=== PATIENT | female | born 1940 | race Caucasian/White ===

== ENCOUNTER 2023-05-20 10:57 | Outpatient (CLI) | payer OTHER, SELFPAY | END 2023-05-20 10:58 | disposition home or self-care (01) | LOC: RAD 11:00 | PROVIDERS: PCP Family Medicine; Visit Provider Family Medicine | DX: R06.00 Dyspnea, unspecified (principal); I07.1 Rheumatic tricuspid insufficiency; I34.0 Nonrheumatic mitral (valve) insufficiency; R60.0 Localized edema | CPT/HCPCS: 93306 ==

== ENCOUNTER 2023-12-29 07:30 | Inpatient (IN) | payer OTHER, SELFPAY ==
[2023-12-29] VITALS (22 sets, daily range): BP systolic 88–126; BP diastolic 41–78; PULSE 62–114; RESP 16–20; TEMP 36.3–36.6; O2SAT 92–100; BMI 19.3; BMI 20.3
--- NOTE | 2023-12-29 07:48 | ED_ITS ---
HPI - General Adult General Time Seen by Provider: 07:49 Date Seen: 12/29/23 Chief complaint: Hypotension Stated complaint: chest pain/ very high or very low BP Time Seen by Provider: 12/29/23 07:48 Source: patient, RN notes reviewed and old records reviewed Mode of arrival: ambulatory Limitations: no limitations History of Present Illness HPI narrative: 83-year-old female who presents today with lightheadedness. For the last week patient is noted lightheadedness when she is standing up. She has been dealing with some upper respiratory symptoms for the last several weeks, has been on 2 rounds of antibiotics and currently on prednisone. She has noted occasional fast heart rate but relates this to using DuoNebs which she has not previously had, says she tolerates albuterol without difficulty. No recent lower extremity swelling, nausea, vomiting, diarrhea. Denies chest pain today but says she had heartburn type pain yesterday which radiated up into her neck. Related Data Home Medications Medication Instructions Recorded Confirmed dicyclomine 10 mg capsule 10 mg PO PRN 11/01/22 12/18/23 lactobacillus combination no.9 4 4,000 mmu cells PO QDAY 11/01/22 12/18/23 billion cell capsule (Adult 50 Plus Probiotic) magnesium 250 mg tablet 500 mg PO QDAY 11/01/22 12/18/23 aspirin 325 mg tablet 650 mg PO .3-4 x daily 12/10/22 12/18/23 betamethasone dipropionate 0.05 % applic topical PRN 12/10/22 12/18/23 topical cream calcium carb-ergocalciferol (vit tab PO DAILY 12/10/22 12/18/23 D2) 500 mg-125 unit tablet vitamin B12 2,500 mcg-folic acid 1 tab PO DAILY 12/10/22 12/18/23 400 mcg disintegrating tablet aluminum hydrox-magnesium carb 160 2 tab PO TID PRN 01/30/23 12/18/23 mg-105 mg chewable tablet (Gaviscon Extra Strength) calcium carbonate (Tums) 200 mg PO TID PRN 01/30/23 12/18/23 fluticasone fur. 100 mcg-umeclid 1 inh inhalation Q24H 05/15/23 12/18/23 62.5 mcg-vilant 25 mcg inhalat.powder (Trelegy Ellipta) Previous Rx's Medication Instructions Recorded albuterol sulfate 90 mcg/actuation 2 puff inhalation Q6-8H #8.5 grams 03/03/23 aerosol inhaler (Ventolin HFA) prednisone 20 mg tablet 20 mg PO BID 5 days #10 tabs 03/03/23 losartan 100 mg tablet 100 mg PO .hs #90 tabs 07/04/23 atenolol 50 mg tablet 50 mg PO BID #180 tabs 07/10/23 pantoprazole 40 mg tablet,delayed 40 mg PO DAILY #90 tabs 10/20/23 release hydrochlorothiazide 25 mg tablet 25 mg PO QAM #90 tabs 11/20/23 nebulizers (Compact Compressor #1 ea 12/18/23 Nebulizer) prednisone 10 mg tablet 10 mg PO DIRECTED #28 tabs 12/18/23 furosemide 20 mg tablet 20 mg PO Q1D PRN for edema #30 tabs 12/19/23 albuterol sulfate 2.5 mg/3 mL 2.5 mg (3 mL) inhalation Q4-6H PRN 12/25/23 (0.083 %) solution for nebulization shortness of breath or wheezing #75 mL Allergies Allergy/AdvReac Type Severity Reaction Status Date / Time No Known Drug Allergies Allergy Verified 12/18/23 09:49 [facility] Medical History (Updated 12/29/23 @ 09:43 by Steve Church MD) COPD exacerbation ?J44.1 - Chronic obstructive pulmonary disease with (acute) exacerbation (ICD-10) Diverticulosis of intestine (06/08/12) ?K57.90 - Diverticulosis of intestine, part unspecified, without perforation or abscess without bleeding (ICD-10) Cyst of pancreas ?K86.2 - Cyst of pancreas (ICD-10) Colonoscopy refused ?Z53.20 - Procedure and treatment not carried out because of patient's decision for unspecified reasons (ICD-10) Surgical History (Updated 10/31/22 @ 09:42 by Ilsa Ballard ~ PSR) History of total hysterectomy with bilateral salpingo-oophorectomy (BSO) (04/13/10) ?Z90.710 - Acquired absence of both cervix and uterus (ICD-10) ?Z90.722 - Acquired absence of ovaries, bilateral (ICD-10) ?Z90.79 - Acquired absence of other genital organ(s) (ICD-10) History of colonoscopy with polypectomy ?Z98.890 - Other specified postprocedural states (ICD-10) ?Z86.010 - Personal history of colonic polyps (ICD-10) History of appendectomy (04/13/10) ?Z90.49 - Acquired absence of other specified parts of digestive tract (ICD- 10) Family History (Updated 10/31/22 @ 09:51 by Ilsa Ballard ~ PSR) Mother Coronary artery disease Stroke Brother Coronary artery disease Father Diabetes Social History (Updated 10/31/22 @ 09:51 by Ilsa Ballard ~ PSR) Narrative: Former smoker Does not use illicit drugs Occasional alcohol consumption Smoking Status: Former smoker Do you use any of these nicotine containing products: None Second hand tobacco smoke exposure: No How often do you have a drink containing alcohol: never How often do you have six or more drinks on one occasion: Never AUDIT-C Alcohol total score: 0 Non-prescribed substance use: denies use service: No Exam Narrative: Exam Narrative: General: Well-developed and well-nourished, no acute distress Head: Atraumatic and normocephalic Eyes: Pupils are equal reactive, extraocular motions intact, conjunctiva clear ENT: External nose and ears are normal, posterior pharynx without erythema or exudate Neck: No midline cervical tenderness, full spontaneous range of motion the neck, trachea midline, no adenopathy Heart: Irregular rate, regular rhythm Lungs: Clear to auscultation bilaterally with trace expiratory wheezes bilaterally Abdomen: Soft, nontender, nondistended with active bowel sounds Musculoskeletal: No tenderness, deformity, or edema Neurologic: Awake, alert, and oriented x3, no gross focal neurologic deficits, cranial nerves intact as tested Psych: Mood and affect are appropriate Skin: No rashes Const: Vital Signs, click to edit/add: Vital Signs - 24 hr 12/29/23 07:52 12/29/23 08:50 Temperature 98 F Pulse Rate [Right Pulse Oximeter] 88 Respiratory Rate 16 Blood Pressure [Ri ght Upper Arm] 116/78 97/52 L Pulse Oximetry 100 Oxygen Delivery Me thod Room Air Course Course ED Course: Patient seen examined. Reviewed most recent primary care visit from 12/18/2023 when patient was seen for COPD exacerbation which at that time had been going on for couple of weeks, some achiness in the axilla but denied chest pain. At that time chest x-ray was done and patient started on doxycycline, continue nebulizer treatments and prednisone taper. Patient presents today with lightheadedness intermittently for about a week worse when she stands up. On exam here, she is noted to be in atrial fibrillation with controlled rate, no prior history of atrial fibrillation. She distally reports an episode of heartburn type pain with radiation in the neck yesterday. This could be from gastroesophageal reflux but also concern for possible angina. Labs are ordered along with fluids and magnesium and will monitor closely, anticipate admission. Reevaluation(s) Time of Reevaluation #1: 08:52 Reevaluation #1: Labs ordered and independently interpreted by the with normal CBC, mild hyponatremia and mild hypo magnesemia, also elevated creatinine [place] [address], magnesium normal. Chest x-ray is ordered. Troponin is 0.07 which may reflect strain, could also be related to poor clearance secondary to elevated creatinine. Time of Reevaluation #2: 09:19 Reevaluation #2: Care discussed with Dr. Prescott, hospitalist for admission. Repeat troponin will be done if this is stable, patient can stay at [facility] Time of Reevaluation #3: 09:39 Reevaluation #3: Chest x-ray independently interpreted by me with fluid in the fissure on the left, possible tiny pleural effusion, no overt findings of infiltrate or cardiomegaly. Patient presents today with cough, episodic lightheadedness. New atrial fibrillation on exam, Labs with elevated creatinine unclear baseline, also elevated BNP which may be related to elevated creatinine and poor clearance, also significantly elevated D-dimer but unfortunately due to kidney injury cannot perform CT PE study. Patient has no pleuritic-type chest pain and oxygen saturations are in the 90s. Given new atrial fibrillation, it would be reasonable to start anticoagulation with either DOAC or heparin/Lovenox pending further evaluation for pulmonary embolism. Plan for admission for echocardiogram, medication adjustments, gentle fluid hydration and further evaluation. Additional Reevaluation(s): 9:57 a.m. repeat troponin unchanged at 0.07. Vital Signs Vital signs: Initial Vital Signs Temperature 98 F 12/29/23 07:52 Temperature Source Temporal Artery Scan 12/29/23 07:52 Pulse Rate 88 12/29/23 07:52 Pulse Rhythm Regular 12/29/23 07:52 Pulse Strength 3+ Normal 12/29/23 07:52 Respiratory Rate 16 12/29/23 07:52 Blood Pressure 116/78 12/29/23 07:52 Blood Pressure Mean 90 12/29/23 07:52 Blood Pressure Position Supine 12/29/23 07:52 Pulse Oximetry 100 12/29/23 07:52 Oxygen Delivery Method Room Air 12/29/23 07:52 Vital Signs Temperature 98 F 12/29/23 07:52 Pulse Rate 88 12/29/23 07:52 Respiratory Rate 16 12/29/23 07:52 Blood Pressure 116/78 12/29/23 07:52 Pulse Oximetry 100 12/29/23 07:52 Oxygen Delivery Method Room Air 12/29/23 07:52 Temperature 98 F 12/29/23 07:52 Pulse Rate 88 12/29/23 07:52 Respiratory Rate 16 12/29/23 07:52 Blood Pressure 97/52 L 12/29/23 08:50 Pulse Oximetry 100 12/29/23 07:52 Oxygen Delivery Method Room Air 12/29/23 07:52 Medications Administered Medications: Generic Name Dose Route Start Last Admin Trade Name Freq PRN Reason Stop Dose Admin Magnesium Sulfate 2 gm in 50 mls @ 25 mls/hr 12/29/23 08:30 12/29/23 09:56 Magnesium Iv IVPB 12/29/23 10:29 Infused ONCE ONE Infusion Potassium Chloride 10 meq in 100 mls @ 100 mls/hr 12/29/23 09:18 12/29/23 09:55 Potassium Chloride IVPB 12/29/23 10:17 100 mls/hr ONCE ONE Administration Discontinued Medications Generic Name Dose Route Start Last Admin Trade Name Freq PRN Reason Stop Dose Admin Sodium Chloride 500 mls @ 500 mls/hr 12/29/23 08:03 12/29/23 08:25 0.9 % Sodium Chloride 500 Ml IV 12/29/23 09:02 500 mls/hr .Q1H ONE Administration Potassium Bicarbonate 25 meq 12/29/23 09:18 12/29/23 09:56 Potassium Bicarb 25 Meq Effervescent Tab PO 12/29/23 09:19 Not Given ONCE ONE Medical Decision Making Lab Data Labs: Lab Results 12/29/23 12/29/23 12/29/23 Range/Units 08:03 08:07 09:30 WBC 6.20 (4.50-11.00) K/uL RBC 3.94 L (4.00-5.20) m/uL Hgb 12.3 (12.0-16.0) gm/dL Hct 36.4 (33.0-51.0) % MCV 92 (80-100) fL MCH 31 (26-34) pg MCHC 34 (32-36) gm/dL RDW Coeff of Brian 13.5 (11.5-15.5) % Plt Count 138 L (140-440) K/uL Neut % (Auto) 64.8 (42.0-72.0) % Lymph % (Auto) 17.4 L (20-44) % Luna % (Auto) 16.8 H (0.0-11.0) % Eos % (Auto) 0.3 (0.0-7.0) % Baso % (Auto) 0.2 (0.0-3.0) % Neut # (Auto) 4.02 (1.7-7.0) K/uL Lymph # (Auto) 1.10 (0.90-2.90) K/uL Luna # (Auto) 1.00 H (0.00-0.90) K/UL Eos # (Auto) 0.02 (0.00-0.50) K/uL Baso # (Auto) 0.01 (0.00-0.30) K/uL Abs Immat Gran (auto) 0.03 (0.00-0.30) K/uL Imm/Tot Granulo (auto) 0.5 % D-Dimer Quant (PE/DVT) 19.29 H (0.00-0.50) ug/ml Sodium 127 L (135-149) mmol/L Potassium 3.2 L (3.6-5.1) mmol/L Chloride 93 L (96-114) mmol/L Carbon Dioxide 25 (20-32) mmol/L Anion Gap 9 (7-15) mEq/L BUN 63 H (7-30) mg/dL Creatinine 3.0 H (0.5-1.5) mg/dL Estimated Creat Clear 10.70 Estimated GFR 15 ml/min Glucose 103 (60-115) mg/dL Calcium 9.6 (8.4-10.6) mg/dL Magnesium 2.5 (1.5-2.6) mg/dL NT-Pro-B Natriuret Pep 57311 pg/mL POC Troponin I 0.07 H 0.07 H (0.01-0.04) ng/ml ECG Data Attestation: I personally reviewed and interpreted this ECG as follows: Prior ECG tracings: not available for review Interpretation: Independently interpreted by me performed at 7:50 a.m. demonstrates atrial fibrillation rate 64, no acute ST elevations or depressions, normal axis, QTC 377, no prior for comparison. Discharge Plan Discharge Clinical Impression: Lightheadedness, Hyponatremia, Renal failure, unspecified, Atrial fibrillation, new onset, Hypotension, Hypokalemia Patient Disposition: Admitted As Observation Condition: Stable
[2023-12-29 08:17] LABS: Basophils Absolute Auto 0.01 K/uL (0.00-0.30); Basophils Percent Auto 0.2 % (0.0-3.0); Eosinophils Absolute Auto 0.02 K/uL (0.00-0.50); Eosinophils Percent Auto 0.3 % (0.0-7.0); Hematocrit 36.4 % (33.0-51.0); Hemoglobin* 12.3 gm/dL (12.0-16.0); Immature Granulocytes Abs Auto 0.03 K/uL (0.00-0.30); Immature Granulocytes Pct Auto 0.5 %; Lymphocytes Percent Auto 17.4 % (20-44); Mean Corpuscular HGB Conc 34 gm/dL (32-36); Mean Corpuscular Hemoglobin 31 pg (26-34); Mean Corpuscular Volume 92 fL (80-100); Monocytes Percent Auto 16.8 % (0.0-11.0); Neutrophils Absolute Auto 4.02 K/uL (1.7-7.0); Neutrophils Percent Auto 64.8 % (42.0-72.0); Platelet Count* 138 K/uL (140-440); RDW Coefficient of Variation % 13.5 % (11.5-15.5); Red Blood Count 3.94 m/uL (4.00-5.20)
[2023-12-29 08:21] LABS: Slide Review Reflex No
[2023-12-29] MEDS: MAGNESIUM IV 2 GM/50 ML PIGGYBACK IVPB (08:25)
[2023-12-29] MEDS: 0.9 % SODIUM CHLORIDE 500 ML 500 ML IV (08:25)
[2023-12-29 08:32] LABS: Chloride* 93 mmol/L (96-114); Potassium* 3.2 mmol/L (3.6-5.1); Sodium* 127 mmol/L (135-149)
[2023-12-29 08:35] LABS: Anion Gap 9 mEq/L (7-15); Blood Urea Nitrogen* 63 mg/dL (7-30); Carbon Dioxide* 25 mmol/L (20-32); Estimated Glomerular Filt Rate 15 ml/min
[2023-12-29 08:36] LABS: Calcium* 9.6 mg/dL (8.4-10.6); Glucose* 103 mg/dL (60-115); Magnesium* 2.5 mg/dL (1.5-2.6)
[2023-12-29 08:44] LABS: NT Pro B Type NatriureticPept* 27100 pg/mL
[2023-12-29 08:46] LABS: D Dimer Quantitative* 19.29 ug/ml (0.00-0.50)
[2023-12-29 08:54] LABS: Troponin, Point-of-Care* 0.07 ng/ml (0.01-0.04)
--- NOTE | 2023-12-29 09:07 | XR_ITS ---
Patient: CELY GIFFORD Facility:?[facility] Patient ID:?[id number] Site Patient ID:?[id number]. Site :?[id number] Study:?XRay-Chest 2 VIEW-12/29/2023 9:31:37 AM Ordering Physician:?DR. LOVE Final Report: INDICATION: Cough with elevated BNP COMPARISON: December 18, 2023 TECHNIQUE: Two views of the chest were acquired FINDINGS: TUBES AND LINES: None. HEART AND MEDIASTINUM: The heart size is normal. The mediastinal contour appears normal for patient age. LUNGS AND PLEURAL SPACES: Hyperinflation likely indicating COPD. Subtle finding of partial collapse of the right middle lobe seen on the lateral view. This was present on the prior chest x-ray. Pleural spaces are normal OSSEOUS STRUCTURES: Age-appropriate appearance. No acute focal finding. IMPRESSION: Hyperinflation likely indicating COPD. Subtle findings of partial collapse of the right middle lobe. This was present 12/18/2023. Otherwise unremarkable exam Dictated by Tc Land MD @ 12/29/2023 9:47:16 AM Signed by:?Tc Land MD @12/29/2023 9:47:16 AM (Electronic Signature)
[2023-12-29 09:50] LABS: Troponin, Point-of-Care* 0.07 ng/ml (0.01-0.04)
[2023-12-29] MEDS: POTASSIUM CHLORIDE 10 MEQ/100 ML PIGGYBACK 100 MEQ IVPB (09:55)
[2023-12-29] MEDS: POTASSIUM BICARB 25 MEQ EFFERVESCENT TAB PO (10:11)
--- NOTE | 2023-12-29 11:27 | PM.IMHP1 ---
Hospitalist- H&P: HPI History of Present Illness Date Seen: 12/29/23 Chief complaint: chest pain/ very high or very low BP Narrative: Tiffanie Rankin is a 83 year old female who presented to the emergency room this morning for postural dizziness. She has been ill for the past 2-3 weeks with an asthma/COPD exacerbation. She has been treated with antibiotics and steroids with minimal relief. DuoNebs were also added to her regimen, but noted significant palpitations after this nebulizer treatment. Over the past few days, she has noted lightheadedness after standing, no syncope. Yesterday, she had an episode of epigastric pain that radiated into her jaw; she was unsure if this was related to gastritis or angina as she had recently eaten some Honey baked ham. This morning, her symptoms of lightheadedness were worse, so she called her son to bring her to the emergency room. ER course and findings: - rate controlled atrial fibrillation on EKG, new finding - creatinine of 3.0 (last creatinine in 2021 - per [facility] chart - was 1.0), Potassium of 3.2 and sodium of 127 - BNP 27K, D-dimer [address] Regalado at [facility] is PCP. Review of Systems Narrative: - believes she has lost about 7 lb during the course of recent illness - sleeping well, no orthopnea or PND - no LE edema, history of intermittent edema (takes Lasix prn - has not taken for some time) - mild bilateral ear congestion over the past week or so, has been using prn Claritin [facility] Medical History (Updated 12/29/23 @ 13:26 by Mya Prescott MD) Irritable bowel syndrome (04/13/10) ?K58.9 - Irritable bowel syndrome without diarrhea (ICD-10) Hypertension (04/13/10) ?I10 - Essential (primary) hypertension (ICD-10) Pedal edema ?R60.0 - Localized edema (ICD-10) BPPV (benign paroxysmal positional vertigo) ?H81.10 - Benign paroxysmal vertigo, unspecified ear (ICD-10) Chronic GERD ?K21.9 - Gastro-esophageal reflux disease without esophagitis (ICD-10) Carotid bruit ?R09.89 - Other specified symptoms and signs involving the circulatory and respiratory systems (ICD-10) Subclinical hypothyroidism ?E03.8 - Other specified hypothyroidism (ICD-10) Peripheral neuropathy ?G62.9 - Polyneuropathy, unspecified (ICD-10) Osteopenia (04/13/10) ?M85.80 - Other specified disorders of bone density and structure, unspecified site (ICD-10) Osteoarthritis of cervical spine (09/25/10) ?M47.812 - Spondylosis without myelopathy or radiculopathy, cervical region (ICD-10) Allergic rhinitis (03/03/14) ?J30.9 - Allergic rhinitis, unspecified (ICD-10) COPD (chronic obstructive pulmonary disease) ?J44.9 - Chronic obstructive pulmonary disease, unspecified (ICD-10) COPD exacerbation ?J44.1 - Chronic obstructive pulmonary disease with (acute) exacerbation (ICD-10) Diverticulosis of intestine (06/08/12) ?K57.90 - Diverticulosis of intestine, part unspecified, without perforation or abscess without bleeding (ICD-10) Cyst of pancreas ?K86.2 - Cyst of pancreas (ICD-10) Colonoscopy refused ?Z53.20 - Procedure and treatment not carried out because of patient's decision for unspecified reasons (ICD-10) Surgical History (Updated 10/31/22 @ 09:42 by Ilsa Ballard ~ PSR) History of total hysterectomy with bilateral salpingo-oophorectomy (BSO) (04/13/10) ?Z90.710 - Acquired absence of both cervix and uterus (ICD-10) ?Z90.722 - Acquired absence of ovaries, bilateral (ICD-10) ?Z90.79 - Acquired absence of other genital organ(s) (ICD-10) History of colonoscopy with polypectomy ?Z98.890 - Other specified postprocedural states (ICD-10) ?Z86.010 - Personal history of colonic polyps (ICD-10) History of appendectomy (04/13/10) ?Z90.49 - Acquired absence of other specified parts of digestive tract (ICD-10) Family History (Updated 10/31/22 @ 09:51 by Ilsa Ballard ~ PSR) Mother Coronary artery disease Stroke Brother Coronary artery disease Father Diabetes Social History (Updated 12/29/23 @ 12:53 by Mya Prescott MD) Narrative: Tiffanie lives alone in [place]; she has one son who from cancer 18 months ago, son Rajiv (MDM if needed) lives in [place] and daughter Suzanne in [place]. She has a 50-60 pack year history of smoking, quit around 2019. Has a cocktail daily, no history of withdrawal but doesn't remember the last time she's gone a day without a small drink (typically vodka and 7-up). 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 What is your current living situation?: I presently have a place to live Problems where you live: no known problems Problems where you live details: none In the past 12 months, utilities in danger of being shut off: no In past 12 months, lack of transportation kept you from medical appts, meetings, work, or getting things needed for daily living: no In the past 12 mos, have been you worried that your food would run out before you had money to buy more?: never true In the past 12 mos, the food you bought just didn't last and you didn't have money to buy more?: never true Highest level of school completed/degree received: Associate degree: occupational, technical, vocational program Smoking Status: Former smoker Do you use any of these nicotine containing products: None Second hand tobacco smoke exposure: No How often do you have a drink containing alcohol: 2-3 times a week How many standard drinks containing alcohol do you have on a typical day: 1 or 2 How often do you have six or more drinks on one occasion: Never AUDIT-C Alcohol total score: 3 Non-prescribed substance use: denies use Caffeine: No How often does anyone, including family, friends and others, physically hurt you: never How often does anyone, including family, friends and others, insult or talk down to you: never How often does anyone, including family, friends and others, threaten you with harm: never How often does anyone, including family, friends and others, scream or curse at you: never service: No Meds Home Medications and Allergies Home Medications Medication Instructions Recorded Confirmed Type dicyclomine 10 mg capsule 10 mg PO QID PRN 11/01/22 12/29/23 History lactobacillus combination no.9 4 4,000 mmu cells PO QDAY 11/01/22 12/29/23 History billion cell capsule (Adult 50 Plus Probiotic) magnesium 250 mg tablet 500 mg PO QDAY 11/01/22 12/29/23 History aspirin 325 mg tablet 650 mg PO .3-4 x daily 12/10/22 12/29/23 History betamethasone dipropionate 0.05 % applic topical Q12H PRN 12/10/22 12/18/23 History topical cream calcium carb-ergocalciferol (vit 1 tab PO DAILY 12/10/22 12/29/23 History D2) 500 mg-125 unit tablet vitamin B12 2,500 mcg-folic acid 1 tab PO DAILY 12/10/22 12/29/23 History 400 mcg disintegrating tablet aluminum hydrox-magnesium carb 160 2 tab PO TID PRN 01/30/23 12/29/23 History mg-105 mg chewable tablet (Gaviscon Extra Strength) calcium carbonate (Tums) 200 mg PO TID PRN 01/30/23 12/29/23 History fluticasone fur. 100 mcg-umeclid 1 inh inhalation Q24H 05/15/23 12/29/23 History 62.5 mcg-vilant 25 mcg inhalat.powder (Trelegy Ellipta) losartan 100 mg tablet 100 mg PO QDAY 12/29/23 12/29/23 History Allergies Allergy/AdvReac Type Severity Reaction Status Date / Time No Known Drug Allergies Allergy Verified 12/18/23 09:49 Exam Narrative: Exam Narrative: GEN: Alert and oriented, nontoxic, appears younger than stated age HEENT: EOMIs bilaterally, no scleral icterus CV: Irregularly irregular rhythm, rate in the 70s, no concerning murmurs R: LCTA bilaterally without concerning wheezing, rales, or rhonchi Ext: wwp, no pretibial edema Skin: No concerning skin lesions or rashes on exposed skin Neuro: No focal deficits, no resting tremor Psych: Appropriate Const: Vital Signs, click to edit/add: Vital Signs - 24 hr 12/29/23 07:52 12/29/23 08:05 12/29/23 08:15 Temperature 98 F Pulse Rate 82 82 Pulse Rate [Right Pulse Oximeter] 88 Pulse Rate [Right Radial] Respiratory Rate 16 Blood Pressure Blood Pressure [Ri ght Arm] Blood Pressure [Ri ght Upper Arm] 116/78 Pulse Oximetry 100 98 94 Oxygen Delivery Me thod Room Air 12/29/23 08:38 12/29/23 08:39 12/29/23 08:40 Temperature Pulse Rate 78 70 Pulse Rate [Right Pulse Oximeter] Pulse Rate [Right Radial] Respiratory Rate Blood Pressure 89/45 L 92/57 L Blood Pressure [Ri ght Arm] Blood Pressure [Ri ght Upper Arm] Pulse Oximetry 94 Oxygen Delivery [facility] 12/29/23 08:45 12/29/23 08:50 12/29/23 09:00 Temperature Pulse Rate 79 82 Pulse Rate [Right Pulse Oximeter] Pulse Rate [Right Radial] Respiratory Rate Blood Pressure Blood Pressure [Ri ght Arm] Blood Pressure [Ri ght Upper Arm] 97/52 L Pulse Oximetry 98 96 Oxygen Delivery [facility] 12/29/23 09:02 12/29/23 09:16 12/29/23 09:35 Temperature Pulse Rate 79 Pulse Rate [Right Pulse Oximeter] Pulse Rate [Right Radial] Respiratory Rate Blood Pressure 88/41 L 94/57 L 126/60 Blood Pressure [Ri ght Arm] Blood Pressure [Ri ght Upper Arm] Pulse Oximetry 92 Oxygen Delivery [facility] 12/29/23 09:40 12/29/23 09:46 12/29/23 10:01 Temperature Pulse Rate Pulse Rate [Right Pulse Oximeter] Pulse Rate [Right Radial] Respiratory Rate Blood Pressure 113/68 107/76 Blood Pressure [Ri ght Arm] Blood Pressure [Ri ght Upper Arm] Pulse Oximetry 99 Oxygen Delivery [facility] 12/29/23 10:18 12/29/23 10:51 Temperature 97.4 F L Pulse Rate Pulse Rate [Right Pulse Oximeter] Pulse Rate [Right Radial] 80 Respiratory Rate 20 Blood Pressure 110/65 Blood Pressure [Ri ght Arm] 114/70 Blood Pressure [Ri ght Upper Arm] Pulse Oximetry Oxygen Delivery [facility] Hospitalist - H&P: Result Labs Labs: Short CBC 12/29/23 Range/Units 08:07 WBC 6.20 (4.50-11.00) K/uL Hgb 12.3 (12.0-16.0) gm/dL Hct 36.4 (33.0-51.0) % Plt Count 138 L (140-440) K/uL BMP 12/29/23 08:07 Sodium 127 L Potassium 3.2 L Chloride 93 L Carbon Dioxide 25 BUN 63 H Creatinine 3.0 H Glucose 103 Calcium 9.6 Assessment and Plan Assessment and plan (1) Atrial fibrillation, new onset: Problem comment: - unclear when arrythmia started - likely contributing to hypotension - HR 70s with occasional increase to 110s, will add low dose Diltiazem with holding parameters to assist with rate control - CHADs-VASC of 4, amenable to initiating Apixaban today after risk/benefit discussion - TTE ordered Status: Acute (2) Acute kidney injury: Problem comment: - presumably pre-renal from recent illness, decreased po intake, decreased perfusion 2/2 hypotension/atrial fibrillation - holding nephrotoxins, check UA, renal ultrasound Status: Acute (3) Elevated troponin: Problem comment: - likely demand ischemia from new a fib, also has BRANDY - telemetry, follow troponins, TTE Status: Acute (4) Hypokalemia: Problem comment: - replace and follow Status: Acute (5) Hypotension: Problem comment: - iatrogenic from home medications vs poor perfusion from new diagnosis of atrial fibrillation - holding home medications, follow closely, gentle IVFs if symptomatic (will monitor closely given concern of CHF) Status: Acute (6) Hyponatremia: Problem comment: - fluid restriction, urine Na and Osm Status: Acute (7) Hypertension: Problem comment: - on Atenolol, Losartan, and HCTZ as an outpatient - holding given BRANDY and hypotension, will transition to low dose Metoprolol given new diagnosis of atrial fibrillation Status: Acute (8) Asthma-chronic obstructive pulmonary disease overlap syndrome: Problem comment: - recent exacerbation - continue oral steroids (Prednisone at 20mg), nebs, RT referral Status: Acute (9) Elevated d-dimer: Problem comment: - ddx: thrombosis, BRANDY, acute illness - will obtain BLE ultrasounds, evaluate R heart function on TTE (deferring formal PE study at this time given BRANDY) - starting Eliquis at this time for a fib Status: Acute Plan - per above - Eliquis for ppx - son Rajiv updated at bedside, questions answered
--- NOTE | 2023-12-29 12:04 | US_ITS ---
Patient: CELY GIFFORD Facility:?[facility] Patient ID:?[id number] Site Patient ID:?[id number]. Site :?[id number] Study:?US-Extremity Venous BLEV-12/29/2023 12:58:58 PM Ordering Physician:KAREN PRESCOTT Final Report: INDICATION: Elevated D-dimer. COMPARISON: None. TECHNIQUE: Duplex ultrasound evaluation venous system both lower extremities; color doppler duplex assessment. Findings: Right leg: The right common femoral vein and deep femoral vein are unremarkable. Extensive occlusive thrombus identified involving the rest of the deep venous system including the entire femoral vein, popliteal vein and posterior tibial veins as well as the peroneal veins. Left leg: No evidence of deep venous thrombosis left lower extremity deep venous system. Deep venous system is compressible with augmentation of flow postconcussion. IMPRESSION: 1. Extensive DVT right lower extremity deep venous system sparing the common femoral vein and the deep femoral vein. 2. No DVT left lower extremity. 3. Findings were notified to Dr. Prescott at 1:10 p.m. Dictated by Salomon Maurice MD @ 12/29/2023 1:13:31 PM Signed by:?Salomon Maurice MD @12/29/2023 1:13:31 PM (Electronic Signature)
--- NOTE | 2023-12-29 12:20 | US_ITS ---
Patient: CELY GIFFORD Facility:?[facility] Patient ID:?[id number] Site Patient ID:?[id number]. Site :?[id number] Study:?US-Abdomen Bilateral RENAL-12/29/2023 12:59:22 PM Ordering Physician:KAREN SULLIVAN Final Report: INDICATION: Acute kidney injury. COMPARISON: None. TECHNIQUE: Ultrasound examination of the kidneys bilateral. FINDINGS: Right kidney measures 8.5 x 3.6 x 3.6 cm and the left kidney measured 9.7 x 3.6 x 2.7 cm. Normal echogenic pattern of the cortex bilaterally. Normal thickness of the renal cortex bilaterally measuring 1.2 cm on the right and 1 cm on the left. no obstructive uropathy or perinephric pathology. IMPRESSION: Normal ultrasound examination of the kidneys bilateral. Dictated by Salomon Maurice MD @ 12/29/2023 1:17:35 PM Signed by:?Salomon Maurice MD @12/29/2023 1:17:35 PM (Electronic Signature)
[2023-12-29 12:28] LABS: Appearance Urine Clear (Clear); Bilirubin Urine Negative (Negative); Blood Urine Negative (Negative); Color Urine Yellow (Yellow); Glucose Urine Negative (Negative); Ketones Urine Negative (Negative); Leukocyte Esterase Urine Trace (Negative); Nitrite Urine Negative (Negative); Protein Urine Negative (Negative); Specific Gravity Urine 1.015 (1.000-1.030); Urobilinogen Urine 0.2 (0.2-1.0)
[2023-12-29 12:46] LABS: Bacteria Urine Few; RBC Urine 0-2 (0-2); Squamous Epithelial Cell Urine Few (None-Few)
[2023-12-29] MEDS: APIXABAN 5 MG TABLET 2.5 MG PO (12:49)
[2023-12-29] MEDS: dilTIAZem 30 MG TABLET PO ×2 (12:49→18:05)
--- NOTE | 2023-12-29 14:36 | PC.NURSE ---
End of Shift Note: Patient was admitted mid morning from the ER after experiencing lightheadedness at home and low b/p. B/P has been on the soft side. Does have tele on which is afib. No complaints of CP or SOB for me. Does complain of her ears feeling full requesting Claritin message left for provider. Heart rate when she first arrived was in the low 100's received dilt along with sam see MAR. Tolerated reg diet. Will continue to monitor until next shift arrives.
[2023-12-29 14:52] LABS: Chloride* 96 mmol/L (96-114); Potassium* 3.9 mmol/L (3.6-5.1); Sodium* 128 mmol/L (135-149)
[2023-12-29 14:55] LABS: Anion Gap 9 mEq/L (7-15); Carbon Dioxide* 23 mmol/L (20-32); Creatinine* 2.9 mg/dL (0.5-1.5); Est. Creatinine Clearance* 11.66; Estimated Glomerular Filt Rate 15 ml/min
[2023-12-29 14:56] LABS: Blood Urea Nitrogen* 61 mg/dL (7-30); Calcium* 9.4 mg/dL (8.4-10.6); Glucose* 148 mg/dL (60-115)
[2023-12-29 15:07] LABS: Troponin I* 0.09 ng/mL (0.01-0.04)
--- NOTE | 2023-12-29 16:08 | RESP.RT ---
PT sitting up in Bed, RR 26 regular and easy. BBS clear decreased in bases. She does not want an IS. Son brought in her Ellipta trelegy inhaler. Pt does see pulmonology. She is tapering from oral steroid. Provider notified. Continue with home inhaler.
[2023-12-29] MEDS: Fluticasone-Umeclidin-Vilanter [Trelegy Ellipta] 100-62.5-25 mcg 1 EACH IH (18:04)
--- NOTE | 2023-12-29 18:52 | PC.NURSE ---
End of shift [id number]: Pt is A&O x4 and afebrile this shift. BP continues to be soft- low 100s/50s. HR maintained in the 70s-90s until Diltiazem was given @ 1805 then HR has been as low as the 40s. 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 TELE reads A. Fib NVR. Pt is SBA with her own 3 wheeled walker, steady gait. Pt denies having any pain or nausea. Reports mild dizziness when standing from seated or lying position. PIV in left AC SL and C/D/I. Pt is on an 1800 mL fluid restriction; last Na @ 1400 was 128. Started 24 hour urine collection @ 1600. Serial trops 0.07 > 0.09 with next draw @ 1999. No BM today. Trelegy inhaler is in pt bin in the med room. Pt was started on PO Eliquis 2.5mg and PO Cardizem 30mg q6H today for new onset A. Fib. She is currently on a prednisone taper for COPD/asthma exac which will begin tomorrow, per pt request.
[2023-12-29] MEDS: ACETAMINOPHEN 325 MG TABLET 975 MG PO (20:23)
[2023-12-29] MEDS: CALCIUM CARBONATE 500 MG CHEW 200 MG PO (20:24)
[2023-12-29] MEDS: SODIUM CHLORIDE 0.9 % (FLUSH) 10 ML SYRINGE 5 ML IVF (20:27)
[2023-12-29 20:47] LABS: Troponin I* 0.09 ng/mL (0.01-0.04)
[2023-12-30] VITALS (9 sets, daily range): BP systolic 91–119; BP diastolic 58–80; PULSE 59–155; RESP 14–18; TEMP 36.3–37.1; O2SAT 92–94; BMI 19.7
[2023-12-30 06:19] LABS: HCO3 VBG 28 mmol/L (21-28); PCO2 VBG 48 mmHG (40-50); PO2 VBG < 30.1 mmHG (25-47); pH VBG 7.376 (7.32-7.43)
[2023-12-30] MEDS: OMEPRAZOLE 20 MG CAPSULE DR 40 MG PO (06:21)
[2023-12-30 06:27] LABS: Basophils Absolute Auto 0.01 K/uL (0.00-0.30); Basophils Percent Auto 0.1 % (0.0-3.0); Eosinophils Absolute Auto 0.04 K/uL (0.00-0.50); Eosinophils Percent Auto 0.6 % (0.0-7.0); Hematocrit 33.9 % (33.0-51.0); Hemoglobin* 11.2 gm/dL (12.0-16.0); Immature Granulocytes Abs Auto 0.02 K/uL (0.00-0.30); Immature Granulocytes Pct Auto 0.3 %; Mean Corpuscular HGB Conc 33 gm/dL (32-36); Mean Corpuscular Hemoglobin 31 pg (26-34); Mean Corpuscular Volume 94 fL (80-100); Monocytes Percent Auto 12.1 % (0.0-11.0); Neutrophils Percent Auto 72.9 % (42.0-72.0); Platelet Count* 122 K/uL (140-440); RDW Coefficient of Variation % 13.8 % (11.5-15.5); Red Blood Count 3.62 m/uL (4.00-5.20); White Blood Count* 7.01 K/uL (4.50-11.00)
[2023-12-30 06:35] LABS: Slide Review Reflex No
[2023-12-30 06:43] LABS: Albumin* 3.2 g/dL (3.3-5.0); Chloride* 98 mmol/L (96-114); Sodium* 130 mmol/L (135-149)
[2023-12-30 06:44] LABS: Potassium* 3.4 mmol/L (3.6-5.1)
[2023-12-30 06:46] LABS: Alanine Aminotransferase* 10 U/L (4-35); Alkaline Phosphatase* 47 U/L (40-150); Anion Gap 5 mEq/L (7-15); Aspartate Amino Transferase* 23 U/L (12-35); Bilirubin Total* 0.2 mg/dL (0.1-1.5); Blood Urea Nitrogen* 62 mg/dL (7-30); Carbon Dioxide* 27 mmol/L (20-32); Creatinine* 2.3 mg/dL (0.5-1.5); Est. Creatinine Clearance* 14.25; Estimated Glomerular Filt Rate 20 ml/min; Glucose* 96 mg/dL (60-115); Total Protein* 5.6 g/dL (6.0-8.3)
--- NOTE | 2023-12-30 06:52 | PC.NURSE ---
Pt alert and oriented x3. Afebrile. Pt denies pain, SOB, chest pain, and N/V. Pt stated while up walking in room I feel much better, and I have gotten up a few times now without feeling dizzy. Pt is on a 24 hour urine collection that started @ 1600, pt missed hat one time during shift. Pt is up SBA with 3 wheel walker. Pt slept throughout most of night.
[2023-12-30 07:07] LABS: NT Pro B Type NatriureticPept* 18300 pg/mL; Troponin I* 0.07 ng/mL (0.01-0.04)
[2023-12-30] MEDS: predniSONE 20 MG TABLET PO (07:33)
[2023-12-30] MEDS: ALBUTEROL SULFATE 2.5 MG/3 ML VIAL.NEB NEB ×3 (07:44→19:54)
[2023-12-30 07:50] LABS: Free T4 Free Thyroxine* 0.83 ng/dL (0.70-1.85)
[2023-12-30] MEDS: APIXABAN 5 MG TABLET 2.5 MG PO ×2 (09:05→20:32)
[2023-12-30] MEDS: SODIUM CHLORIDE 0.9 % (FLUSH) 10 ML SYRINGE 5 ML IVF ×2 (09:06→20:32)
[2023-12-30] MEDS: LORATADINE 10 MG TABLET PO (09:06)
[2023-12-30] MEDS: ACETAMINOPHEN 325 MG TABLET 975 MG PO (09:09)
[2023-12-30] MEDS: CALCIUM CARBONATE 500 MG CHEW 200 MG PO ×2 (09:09→20:37)
--- NOTE | 2023-12-30 10:01 | P.IMPN_ITS ---
Progress Note: A&P Assessment and plan (1) Atrial fibrillation, new onset: Problem details: - unclear when arrythmia started - likely contributing to hypotension - Rate control was not needed overnight; dilt held for rate less than 70, this am up to 100. - CHADs-VASC of 4, amenable to initiating Apixaban today after risk/benefit discussion - TTE reviewed. mild biatrial enlargement. normal EF. Status: Acute (2) Acute DVT (deep venous thrombosis): Problem details: -Extensive DVT right lower extremity deep venous system sparing the common femoral vein and the deep femoral vein -renal dosed eliquis -working with therapies Status: Acute (3) Acute kidney injury: Problem details: - presumably pre-renal from recent illness, decreased po intake, decreased perfusion 2/2 hypotension/atrial fibrillation - holding nephrotoxins - UC neg - Renal u/s reviewed - Creatinine improving Status: Acute (4) Elevated troponin: Problem details: - likely demand ischemia from new a fib, also has BRANDY - telemetry - trop downtrending - ANDREA reviewed Status: Acute (5) Hypokalemia: Problem details: - replace and follow Status: Acute (6) Hypotension: Problem details: - iatrogenic from home medications vs poor perfusion from new diagnosis of atrial fibrillation - holding home medications, follow closely, gentle IVFs if symptomatic (will monitor closely given concern of CHF) - home meds: HCTZ, losartan, atenolol. Dilt wasn't used overnight. consider low dose betablockade with hold parameters. Status: Acute (7) Hyponatremia: Problem details: - fluid restriction, urine Na and Osm (still pending) - improved Status: Acute (8) Hypertension: Problem details: - on Atenolol, Losartan, and HCTZ as an outpatient - holding given BRANDY and hypotension, will transition to low dose Metoprolol given new diagnosis of atrial fibrillation Status: Acute (9) Asthma-chronic obstructive pulmonary disease overlap syndrome: Problem details: - recent exacerbation - continue oral steroids (Prednisone at 20mg), nebs, RT referral Status: Acute Subjective Date Seen: 12/30/23 Interval history: Daily Progress Note - Hospital Medicine Day #: 2 (admitted yesterday am) CC: New AFib, relative hypotension, acute DVT OVERNIGHT UPDATES FROM STAFF & MED, LAB, IMAGING UPDATES -slept well. Feels improved. Did report some fleeting chest pain - tylenol helped this am. ECG stable. CBC this morning is mostly stable. Hemoglobin has dropped from 12.3-11.2 Platelet count 138 down to 122. -Creatinine has improved from 2.9 down to 2.3 -Sodium has improved to 130. -Troponin is stable in down trending -BNP is down trending -Free T4 is normal -venous duplex and renal ultrasound ordered yesterday have been reviewed -urine cultures neck -echocardiogram has been noted in epic Echo done 12/29/2023 -normal LV size. EF 60-65% -mild by atrial enlargement -chronic moisturize valvular finding Objective: alert, very good historian. feels improved. asking about discharge planning I need a shower, I need my hair done, nails done - she says in jest. Vitals: see above Lungs: Clear. Cardiac: irregular, irregular, rate 90's. no edema. Disposition/Potential discharge - Likely to return to previous living situation. Today I spent 50minutes seeing the patient, reviewing [facility] and [facility] notes/diagnostics, discussing the care plan with our care time that includes social work, PT/OT, pharmacy, RT, detention and documenting my impressions and plan in the medical record. Exam Const: Vital Signs, click to edit/add: Vital Signs - 24 hr 12/29/23 10:18 12/29/23 10:51 12/29/23 10:51 Temperature 97.4 F L Pulse Rate Pulse Rate [Right Radial] 80 Respiratory Rate 20 20 Blood Pressure 110/65 Blood Pressure [Ri ght Arm] 114/70 Pulse Oximetry Oxygen Delivery Me thod 12/29/23 13:02 12/29/23 15:00 12/29/23 15:00 Temperature Pulse Rate 114 H 62 Pulse Rate [Right Radial] 65 Respiratory Rate 18 Blood Pressure Blood Pressure [Ri ght Arm] Pulse Oximetry Oxygen Delivery Me thod 12/29/23 15:00 12/29/23 15:00 12/29/23 15:27 Temperature 97.9 F 97.9 F Pulse Rate Pulse Rate [Right Radial] 65 65 Respiratory Rate 18 18 18 Blood Pressure Blood Pressure [Ri ght Arm] 105/56 L 105/56 L Pulse Oximetry 95 95 95 Oxygen Delivery Me thod Room Air Room Air Room Air 12/29/23 19:00 12/29/23 23:00 12/29/23 23:00 Temperature 97.4 F L Pulse Rate 62 Pulse Rate [Right Radial] 62 Respiratory Rate 18 16 Blood Pressure Blood Pressure [Ri ght Arm] 98/51 L Pulse Oximetry 95 93 Oxygen Delivery Me thod Room Air Room Air 12/30/23 01:09 12/30/23 04:52 12/30/23 07:00 Temperature 97.4 F L 97.4 F L Pulse Rate 74 Pulse Rate [Right Radial] 60 59 L Respiratory Rate 16 16 Blood Pressure Blood Pressure [Ri ght Arm] 104/65 117/68 Pulse Oximetry 93 94 Oxygen Delivery Me thod Room Air Room Air 12/30/23 07:37 12/30/23 07:37 12/30/23 07:37 Temperature 98 F 98 F Pulse Rate Pulse Rate [Right Radial] 71 71 71 Respiratory Rate 14 14 14 Blood Pressure Blood Pressure [Ri ght Arm] 119/61 119/61 Pulse Oximetry 94 94 Oxygen Delivery Me thod Room Air Room Air 12/30/23 07:37 Temperature Pulse Rate Pulse Rate [Right Radial] Respiratory Rate 14 Blood Pressure Blood Pressure [Ri ght Arm] Pulse Oximetry 94 Oxygen Delivery Me thod Room Air Labs Labs: Laboratory Results - last 24 hr 12/29/23 12/29/23 12/29/23 08:03 08:07 12:09 WBC RBC Hgb Hct MCV MCH MCHC RDW Coeff of Brian Plt Count Neut % (Auto) Lymph % (Auto) [place] % (Auto) Eos % (Auto) Baso % (Auto) Neut # (Auto) Lymph # (Auto) [place] # (Auto) Eos # (Auto) Baso # (Auto) Abs Immat Gran (auto) Imm/Tot Granulo (auto) VBG pH VBG pCO2 VBG pO2 VBG HCO3 Sodium Potassium Chloride Carbon Dioxide Anion Gap BUN Creatinine Estimated Creat Clear Estimated GFR Glucose Calcium Total Bilirubin AST ALT Alkaline Phosphatase Troponin I NT-Pro-B Natriuret Pep Total Protein Albumin TSH 7.340 H Free T4 Urine Color Yellow Urine Appearance Clear Urine pH 6.0 Ur Specific [place] 1.015 Urine Protein Negative Urine Glucose (UA) Negative Urine Ketones Negative Urine Blood Negative Urine Nitrite Negative Urine Bilirubin Negative Urine Urobilinogen 0.2 Ur Leukocyte Esterase Trace A Urine RBC 0-2 Urine WBC 2-5 Ur Squamous Epith Cells Few Urine Bacteria Few A Lab Acknowledgement Test Added 12/29/23 12/29/23 12/30/23 14:15 20:04 06:00 WBC 7.01 RBC 3.62 L Hgb 11.2 L Hct 33.9 MCV 94 MCH 31 MCHC 33 RDW Coeff of Brian 13.8 Plt Count 122 L Neut % (Auto) 72.9 H Lymph % (Auto) 14.0 L [place] % (Auto) 12.1 H Eos % (Auto) 0.6 Baso % (Auto) 0.1 Neut # (Auto) 5.10 Lymph # (Auto) 1.00 [place] # (Auto) 0.80 Eos # (Auto) 0.04 Baso # (Auto) 0.01 Abs Immat Gran (auto) 0.02 Imm/Tot Granulo (auto) 0.3 VBG pH 7.376 VBG pCO2 48 VBG pO2 < 30.1 VBG HCO3 28 Sodium 128 L 130 L Potassium 3.9 3.4 L Chloride 96 98 Carbon Dioxide 23 27 Anion Gap 9 5 L BUN 61 H 62 H Creatinine 2.9 H 2.3 H Estimated Creat Clear 11.66 14.25 Estimated GFR 15 20 Glucose 148 H 96 Calcium 9.4 9.0 Total Bilirubin 0.2 AST 23 ALT 10 Alkaline Phosphatase 47 Troponin I 0.09 H* 0.09 H* 0.07 H* NT-Pro-B Natriuret Pep 37638 Total Protein 5.6 L Albumin 3.2 L TSH Free T4 0.83 Urine Color Urine Appearance Urine pH Ur Specific [place] Urine Protein Urine Glucose (UA) Urine Ketones Urine Blood Urine Nitrite Urine Bilirubin Urine Urobilinogen Ur Leukocyte Esterase Urine RBC Urine WBC Ur Squamous Epith Cells Urine Bacteria Lab Acknowledgement 12/30/23 07:14 WBC RBC Hgb Hct MCV MCH MCHC RDW Coeff of Brian Plt Count Neut % (Auto) Lymph % (Auto) [place] % (Auto) Eos % (Auto) Baso % (Auto) Neut # (Auto) Lymph # (Auto) [place] # (Auto) Eos # (Auto) Baso # (Auto) Abs Immat Gran (auto) Imm/Tot Granulo (auto) VBG pH VBG pCO2 VBG pO2 VBG HCO3 Sodium Potassium Chloride Carbon Dioxide Anion Gap BUN Creatinine Estimated Creat Clear Estimated GFR Glucose Calcium Total Bilirubin AST ALT Alkaline Phosphatase Troponin I NT-Pro-B Natriuret Pep Total Protein Albumin TSH Free T4 Urine Color Urine Appearance Urine pH Ur Specific [place] Urine Protein Urine Glucose (UA) Urine Ketones Urine Blood Urine Nitrite Urine Bilirubin Urine Urobilinogen Ur Leukocyte Esterase Urine RBC Urine WBC Ur Squamous Epith Cells Urine Bacteria Lab Acknowledgement Test Added
[2023-12-30] MEDS: atenoloL 50 MG TABLET 25 MG PO ×2 (11:39→20:31)
[2023-12-30] MEDS: TRAMADOL HCL 50 MG TABLET PO ×2 (14:43→20:31)
--- NOTE | 2023-12-30 15:33 | PC.NURSE ---
End of Shift: Patient pleasant and cooperative. Patient vitally stable, lungs course, BS WNL, IV SL. Patient reports chest pain that is more on the left side, EKG was performed. Tylenol and tramadol was given for chest discomfort with improvement. Patient SBA with walker. Patient tolerating regular diet and urinating. Neb given to patient upon request x2, as patient reports feeling SOB and having chest tightness. Tele=A.fib.
--- NOTE | 2023-12-30 15:57 | PC.SOCIAL ---
Met with pt to discuss discharge plans. Pt lives alone in her apartment in [place]. There are no stairs and everything is accessible to pt on one floor. Pt plans to return to home after discharge. Pt has walkers and canes available at home. Pt will be getting a shower chair to use at her home. Discussed pt's alcohol use and pt has no desire to quit drinking. Pt refuses any substance abuse treatment programs or resources. Informed pt that if she has any other questions she may reach out to social work. Provided update to
--- NOTE | 2023-12-30 17:01 | PC.NURSE ---
24 hour urine update: 24 hour urine was completed at 1600 on 12/29. However, patient reported missing collection hat at least once during the night. Confirmed with lab, based on patient report of missing hat and total volume brought to lab, it was determined that 24 hour urine needed to be restarted. Suzanne Reyez updated. Primary nurse instructed to waste 1600 urine sample and start 24 urine over.
[2023-12-30] MEDS: Fluticasone-Umeclidin-Vilanter [Trelegy Ellipta] 100-62.5-25 mcg 1 EACH IH (17:55)
--- NOTE | 2023-12-30 18:44 | PC.NURSE ---
Nursing Care Hours: [id number] Pt this shift calm and cooperative, alert and oriented with c/o lightheadedness and foggy. Hypotensive with slight c/o lightheadedness, hospitalist made aware. Pt c/o muscle related chest pain, worsens with deep breathing. Pt states Tramadol not effective but declines other options offered such as heat, ice, lidocaine patch, and oxycodone. SB assist to bathroom, gait stable. 24 hr u/o collection not adequate per microbiology laboratory manager. Repeat collection starting with dumped urine at 1600. Tele reading afib with RVR, but rate highly variable from 60's to 128's. Oxygen stable on RA.
[2023-12-31] VITALS (9 sets, daily range): BP systolic 80–115; BP diastolic 55–82; PULSE 65–133; RESP 18–22; TEMP 36.2–37.1; O2SAT 90–93
[2023-12-31] MEDS: TRAMADOL HCL 50 MG TABLET PO ×4 (03:13→20:34)
[2023-12-31] MEDS: LIDOCAINE 5% PATCH 1 PATCH TRANSDERMA (04:05)
[2023-12-31] MEDS: CALCIUM CARBONATE 500 MG CHEW 200 MG PO ×3 (04:21→16:37)
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
[2023-12-31] MEDS: OMEPRAZOLE 20 MG CAPSULE DR 40 MG PO (06:44)
[2023-12-31] MEDS: ALBUTEROL SULFATE 2.5 MG/3 ML VIAL.NEB NEB ×3 (06:49→20:07)
[2023-12-31 06:52] LABS: Hematocrit 33.6 % (33.0-51.0); Hemoglobin* 11.1 gm/dL (12.0-16.0); Mean Corpuscular HGB Conc 33 gm/dL (32-36); Mean Corpuscular Hemoglobin 31 pg (26-34); Mean Corpuscular Volume 95 fL (80-100); Platelet Count* 134 K/uL (140-440); Red Blood Count 3.55 m/uL (4.00-5.20); White Blood Count* 14.89 K/uL (4.50-11.00)
[2023-12-31 07:17] LABS: Slide Review Reflex No
[2023-12-31 07:19] LABS: Albumin* 3.1 g/dL (3.3-5.0); Chloride* 98 mmol/L (96-114); Potassium* 3.6 mmol/L (3.6-5.1); Sodium* 128 mmol/L (135-149)
[2023-12-31 07:22] LABS: Anion Gap 7 mEq/L (7-15); Blood Urea Nitrogen* 53 mg/dL (7-30); Calcium* 8.3 mg/dL (8.4-10.6); Carbon Dioxide* 23 mmol/L (20-32); Creatinine* 1.8 mg/dL (0.5-1.5); Est. Creatinine Clearance* 18.44; Estimated Glomerular Filt Rate 27 ml/min; Glucose* 153 mg/dL (60-115)
[2023-12-31] MEDS: predniSONE 20 MG TABLET PO (07:53)
[2023-12-31] MEDS: atenoloL 50 MG TABLET 25 MG PO (09:28)
[2023-12-31] MEDS: MAGNESIUM OXIDE 400 MG TABLET PO (09:28)
[2023-12-31] MEDS: LORATADINE 10 MG TABLET PO (09:28)
[2023-12-31] MEDS: SODIUM CHLORIDE 0.9 % (FLUSH) 10 ML SYRINGE 5 ML IVF ×2 (09:29→20:35)
[2023-12-31] MEDS: APIXABAN 5 MG TABLET 2.5 MG PO ×2 (09:32→20:35)
[2023-12-31] MEDS: atenoloL 25 MG TABLET PO (10:11)
[2023-12-31] MEDS: PANTOPRAZOLE SODIUM 40 MG INJ IVP (10:17)
[2023-12-31] MEDS: SODIUM CHLORIDE 1 GM TABLET PO ×3 (10:17→17:44)
[2023-12-31] MEDS: dilTIAZem 120 MG CAP.ER.24H PO (10:33)
[2023-12-31] MEDS: LACTOBACILLUS ACIDOPHILUS 1 TABLET 1 TAB PO ×2 (11:44→17:45)
--- NOTE | 2023-12-31 14:32 | PM.IMPN1 ---
Progress Note: A&P Assessment and plan (1) Atrial fibrillation, new onset: Problem details: - unclear when arrythmia started - likely contributing to hypotension - Rate control more difficult today. we had held dilt on 12/29 - added atenolol 25mg 12/29 (metoprolol was refused) - overnight to am of 12/30 - rate increased to 120s, pressure has been soft. added Dilt 120mg - watching BP carefully. HR 130s pm of 12/30 - adding digoxin. - CHADs-VASC of 4, amenable to initiating Apixaban - TTE reviewed. mild biatrial enlargement. normal EF. Status: Acute (2) Acute DVT (deep venous thrombosis): Problem details: -Extensive DVT right lower extremity deep venous system sparing the common femoral vein and the deep femoral vein -renal dosed eliquis -working with therapies Status: Acute (3) Acute kidney injury: Problem details: - presumably pre-renal from recent illness, decreased po intake, decreased perfusion 2/2 hypotension/atrial fibrillation - holding nephrotoxins - UC neg - Renal u/s reviewed - Creatinine improving Status: Acute (4) Elevated troponin: Problem details: - likely demand ischemia from new a fib, also has BRANDY - telemetry - trop downtrending - ANDREA reviewed Status: Acute (5) Hypokalemia: Problem details: - replace and follow Status: Acute (6) Hypotension: Problem details: - iatrogenic from home medications vs poor perfusion from new diagnosis of atrial fibrillation - holding home medications, follow closely, gentle IVFs if symptomatic (will monitor closely given concern of CHF) - home meds: HCTZ, losartan, atenolol. Dilt wasn't used overnight. consider low dose betablockade with hold parameters. Status: Acute (7) Hyponatremia: Problem details: - fluid restriction, urine Na and Osm (still pending) - chronic alcoholism? - adding salt tabs Status: Acute (8) Hypertension: Problem details: - on Atenolol, Losartan, and HCTZ as an outpatient - holding given BRANDY and hypotension, will transition to low dose Metoprolol given new diagnosis of atrial fibrillation Status: Acute (9) Asthma-chronic obstructive pulmonary disease overlap syndrome: Problem details: - recent exacerbation - continue oral steroids (Prednisone at 20mg), nebs, RT referral Status: Acute (10) GERD (gastroesophageal reflux disease): Status: Acute Subjective Date Seen: 12/31/23 Interval history: Daily Progress Note - Hospital Medicine Day #: 3 CC: New AFib with RVR, relative hypotension, acute DVT OVERNIGHT UPDATES FROM STAFF & MED, LAB, IMAGING UPDATES -has chronic pain that flared along her paraspinal thoracic spine - lidoderm and ultram helped some -emesis x 2; no nausea or warning. pt feels this is related to not having her PPI (pantoprazole vs our omeprazole) CBC this morning is mostly stable. Hemoglobin has dropped from 12.3-11.2 -->11.1 Platelet count 138 -->134 -Creatinine has improved from 2.9 --> 1.8 -Sodium fluctuates 128 - 130. -Troponin is stable and down trending -BNP is down trending -Free T4 is normal -venous duplex and renal ultrasound ordered yesterday have been reviewed -urine cultures neg -echocardiogram has been noted in [facility] Echo done 12/29/2023 -normal LV size. EF 60-65% -mild by atrial enlargement -chronic age related valvular finding Objective: alert, very good historian. feels improved. asking about discharge planning I need a shower, I need my hair done, nails done - she says in jest. Vitals: see above Lungs: Clear. Cardiac: irregular, irregular, rate 110-125. no edema. Disposition/Potential discharge - Likely to return to previous living situation. Today I spent 50minutes seeing the patient, reviewing [facility] and [facility] notes/diagnostics, discussing the care plan with our care time that includes social work, PT/OT, pharmacy, RT, correction and documenting my impressions and plan in the medical record. Exam Const: Vital Signs, click to edit/add: Vital Signs - 24 hr 12/30/23 15:00 12/30/23 15:00 12/30/23 15:00 Temperature 98.0 F Pulse Rate Pulse Rate [Left P ulse Oximeter] 111 H Pulse Rate [Right Radial] 111 H Respiratory Rate 18 18 18 Blood Pressure [Ri ght Arm] Pulse Oximetry 92 92 Oxygen Delivery Me thod Room Air Room Air 12/30/23 15:00 12/30/23 19:00 12/30/23 23:00 Temperature 97.9 F 98.8 F Pulse Rate 122 H Pulse Rate [Left P ulse Oximeter] 122 H 88 Pulse Rate [Right Radial] Respiratory Rate 16 18 Blood Pressure [Ri ght Arm] 91/69 101/76 Pulse Oximetry 94 Oxygen Delivery Me thod Room Air 12/30/23 23:00 12/30/23 23:00 12/30/23 23:00 Temperature Pulse Rate 133 H Pulse Rate [Left P ulse Oximeter] Pulse Rate [Right Radial] Respiratory Rate 18 18 Blood Pressure [Ri ght Arm] Pulse Oximetry 94 Oxygen Delivery Me thod Room Air 12/31/23 03:00 12/31/23 07:50 12/31/23 07:50 Temperature 97.2 F L 98.8 F 98.8 F Pulse Rate Pulse Rate [Left P ulse Oximeter] 95 120 H 120 H Pulse Rate [Right Radial] 111 H Respiratory Rate 18 22 22 Blood Pressure [Ri ght Arm] 106/82 113/69 113/69 Pulse Oximetry 93 92 92 Oxygen Delivery Me thod Room Air Room Air Room Air 12/31/23 07:50 12/31/23 07:50 12/31/23 10:09 Temperature Pulse Rate 111 H Pulse Rate [Left P ulse Oximeter] 120 H Pulse Rate [Right Radial] Respiratory Rate 22 22 Blood Pressure [Ri ght Arm] Pulse Oximetry 92 Oxygen Delivery Me thod Room Air 12/31/23 11:18 Temperature 97.6 F Pulse Rate Pulse Rate [Left P ulse Oximeter] 119 H Pulse Rate [Right Radial] Respiratory Rate 20 Blood Pressure [Ri ght Arm] 80/57 L Pulse Oximetry 93 Oxygen Delivery Me thod Room Air Labs Labs: Laboratory Results - last 24 hr 12/31/23 05:55 WBC 14.89 H RBC 3.55 L Hgb 11.1 L Hct 33.6 MCV 95 MCH 31 MCHC 33 Plt Count 134 L Sodium 128 L Potassium 3.6 Chloride 98 Carbon Dioxide 23 Anion Gap 7 BUN 53 H Creatinine 1.8 H Estimated Creat Clear 18.44 Estimated GFR 27 Glucose 153 H Calcium 8.3 L Phosphorus 3.0 Albumin 3.1 L
[2023-12-31] MEDS: DIGOXIN 250 MCG TABLET 500 MCG PO (16:24)
[2023-12-31] MEDS: Fluticasone-Umeclidin-Vilanter [Trelegy Ellipta] 100-62.5-25 mcg 1 EACH IH (17:29)
[2023-12-31] MEDS: ONDANSETRON 2 MG/ML inj 4 MG IVP (17:45)
--- NOTE | 2023-12-31 18:27 | P.EN_ITS ---
Chart Event Note Date Seen: 12/31/23 Chart Event Note: Today, patient received diltiazem 120 mg at 10:30 a.m., atenolol 25 mg at 9:30 a.m. and again at 10:15 a.m. and digoxin 500 mg at 4:30 p.m for heart rate >120. Shortly after 1700 p.m. patient noted to be bradycardic, rate 40-60s, with notable pauses. Mildly symptomatic with mild nausea. No chest pain. Blood pressure 102/59. Respirations 16. Afebrile. Pacer pads applied. Called [facility], spoke with Dr. Torsten Knox. Discussed hospital co urse and care. Recommendations were to discontinue diltiazem and digoxin. Resume normal home dose atenolol tomorrow or when appropriate. No further interventions otherwise required at this time.
--- NOTE | 2023-12-31 18:43 | PC.NURSE ---
End of Shift: Patient pleasant and cooperative. Patient vitally stable, lungs diminished, BS WNL, IV SL and intact. Patient rates back pain at most 7/10, tramadol 50 mg given x2, and lidocaine patch now removed from back. Active ice intermittently used for left sided back pain. Patient overall feels more unwell compared to yesterday. Patient has minimal appetite and is encouraged to eat. Zophran was given once for a period of nausea patient had when she woke up. Patient is SBA walker. Patient urinating but very little, No BM. Tele=A.fib and at times with RVR. Patient's heart rate has been as high as the 140s, last couple of hours during this shift HR as been as low as upper 50s. MD is aware, EKG was performed by charge nurse.
[2024-01-01] VITALS (18 sets, daily range): BP systolic 87–122; BP diastolic 44–87; PULSE 60–109; RESP 18–20; TEMP 35.8–36.4; O2SAT 88–90
[2024-01-01] MEDS: LIDOCAINE 5% PATCH 1 PATCH TRANSDERMA (03:35)
--- NOTE | 2024-01-01 05:25 | PC.NURSE ---
Shift note: Pt is doing well, SBA. Low urine output. Heart rate has been less than 100 throughout the night. No deterioration to the right leg swelling.
[2024-01-01] MEDS: OMEPRAZOLE 20 MG CAPSULE DR 40 MG PO (06:15)
[2024-01-01] MEDS: ALBUTEROL SULFATE 2.5 MG/3 ML VIAL.NEB NEB ×2 (06:15→12:04)
[2024-01-01] MEDS: TRAMADOL HCL 50 MG TABLET PO ×2 (06:21→12:03)
[2024-01-01] MEDS: CALCIUM CARBONATE 500 MG CHEW 200 MG PO (06:23)
[2024-01-01 06:45] LABS: HCO3 VBG 20 mmol/L (21-28); PCO2 VBG 56 mmHG (40-50); PO2 VBG < 30.1 mmHG (25-47)
[2024-01-01 06:51] LABS: Lactate* 6.4 mmol/L (0.5-1.9); pH VBG 7.152 (7.32-7.43)
[2024-01-01 06:55] LABS: Hematocrit 36.6 % (33.0-51.0); Hemoglobin* 11.5 gm/dL (12.0-16.0); Mean Corpuscular HGB Conc 31 gm/dL (32-36); Mean Corpuscular Hemoglobin 31 pg (26-34); Mean Corpuscular Volume 98 fL (80-100); Platelet Count* 169 K/uL (140-440); Red Blood Count 3.72 m/uL (4.00-5.20); White Blood Count* 17.09 K/uL (4.50-11.00)
[2024-01-01 07:02] LABS: Slide Review Reflex No
[2024-01-01 07:12] LABS: INR 1.47 (0.91-1.10); Prothrombin Time 18.9 Seconds
[2024-01-01 07:14] LABS: Albumin* 3.4 g/dL (3.3-5.0); Chloride* 94 mmol/L (96-114); Potassium* 4.9 mmol/L (3.6-5.1); Sodium* 126 mmol/L (135-149)
[2024-01-01 07:17] LABS: Anion Gap 13 mEq/L (7-15); Blood Urea Nitrogen* 64 mg/dL (7-30); Carbon Dioxide* 19 mmol/L (20-32); Creatinine* 3.4 mg/dL (0.5-1.5); Est. Creatinine Clearance* 10.01; Estimated Glomerular Filt Rate 13 ml/min; Glucose* 116 mg/dL (60-115)
[2024-01-01 07:18] LABS: Calcium* 8.3 mg/dL (8.4-10.6); Magnesium* 2.2 mg/dL (1.5-2.6); Phosphorus* 4.7 mg/dL (2.5-4.5)
[2024-01-01 07:49] LABS: C Reactive Protein* 24.6 mg/dL (0.5-1.0); NT Pro B Type NatriureticPept* 43300 pg/mL; Troponin I* 0.12 ng/mL (0.01-0.04)
[2024-01-01] MEDS: HYDROCORTISONE SOD SUCCINATE 50 MG/ML inj 100 MG IVP ×2 (08:28→16:21)
[2024-01-01] MEDS: 0.9 % SODIUM CHLORIDE 500 ML 500 ML 250 ML IV (08:28)
[2024-01-01] MEDS: LORATADINE 10 MG TABLET PO (09:12)
[2024-01-01] MEDS: APIXABAN 5 MG TABLET 2.5 MG PO (09:12)
[2024-01-01] MEDS: dilTIAZem 120 MG CAP.ER.24H PO (09:13)
[2024-01-01] MEDS: SODIUM CHLORIDE 1 GM TABLET PO ×2 (09:13→13:18)
[2024-01-01] MEDS: LACTOBACILLUS ACIDOPHILUS 1 TABLET 1 TAB PO ×2 (09:13→13:18)
[2024-01-01] MEDS: SODIUM CHLORIDE 0.9 % (FLUSH) 10 ML SYRINGE 5 ML IVF (09:14)
[2024-01-01] MEDS: MAGNESIUM OXIDE 400 MG TABLET PO (09:14)
[2024-01-01] MEDS: PANTOPRAZOLE SODIUM 40 MG INJ IVP (09:14)
--- NOTE | 2024-01-01 11:04 | P.IMPN_ITS ---
Progress Note: A&P Assessment and plan (1) Shock circulatory: Problem details: -Intermittently since arrival. Presumed from new AFIB while taking her home BPmeds. -However, now consider all forms of shock: cardiogenic (EKG, only slight bump in trop, normal ECHO all argue against this), PE with new DVT? (on eliquis -will switch to Heparin), will start heparin gtt), endocrine/acute adrenal crisis (giving hydrocortisone this am) - will add am cortisol to this mornings labs, septic - no fever but CRP elevated, no blood cultured, urine cx neg, no infection identified. starting zosyn, getting blood cultures, and cortez CT (CAP). -adding more fluid bolus, ortega, pressor, heparin gtt -close monitoring Status: Acute (2) Atrial fibrillation, new onset: Problem details: - unclear when arrythmia started - likely contributing to hypotension - Rate control more difficult today. we had held dilt on 12/29 - added atenolol 25mg 12/29 (metoprolol was refused) - overnight to am of 12/30 - rate increased to 120s, pressure has been soft. added Dilt 120mg - watching BP carefully. HR 130s pm of 12/30 - adding digoxin. HR dropped to 60's evening of the 12/30 - hypotension continues. - CHADs-VASC of 4, amenable to initiating Apixaban - TTE reviewed. mild biatrial enlargement. normal EF. Status: Acute (3) Acute DVT (deep venous thrombosis): Problem details: -Extensive DVT right lower extremity deep venous system sparing the common femoral vein and the deep femoral vein -renal dosed eliquis -working with therapies Status: Acute (4) Acute kidney injury: Problem details: - baseline creat 1.0 in 2021 - presumably pre-renal from recent illness, decreased po intake, decreased perfusion 2/2 hypotension/atrial fibrillation - holding nephrotoxins - UC neg - Renal u/s reviewed - Creatinine initially responded and decreased to 1.8, 12/31 jumped up again to >3.0 Status: Acute (5) Elevated troponin: Problem details: - likely demand ischemia from new a fib, also has BRANDY - ANDREA reviewed Status: Acute (6) Hyponatremia: Problem details: - normal saline and LR infusing - chronic alcoholism? - adding salt tabs Status: Acute (7) Hypokalemia: Problem details: - replace and follow Status: Acute (8) Hypertension: Problem details: - on Atenolol, Losartan, and HCTZ as outpatient - on hold Status: Acute (9) Asthma-chronic obstructive pulmonary disease overlap syndrome: Problem details: - recent exacerbation - continue oral steroids (Prednisone at 20mg), nebs, RT referral Status: Acute (10) GERD (gastroesophageal reflux disease): Problem details: IV PPI Status: Acute Subjective Date Seen: 01/01/24 Interval history: Daily Progress Note - Hospital Medicine Day #: 4 CC: New AFib with RVR, relative hypotension, acute DVT - new worsening kidney function, elevated lactate/acidosis OVERNIGHT UPDATES FROM STAFF & MED, LAB, IMAGING UPDATES -for two days her HR has been difficult to control (new AFIB) and in the setting of the hypotension - we attempted: half doses of her home atenolol, then we cautiously added Dilt 120ER, then we started with a digoxin oral bolus at 430pm yesterrday, 12/30. Suddenly her HR dropped to 60's with pauses, continued AFIB. We held further dig doses, atenolol doses. -No chest pain, no new resp complaints, continued chronic back pain. generalized blah feeling. This morning her labs are quite abnormal. Her vitals show continued hypotension and HR in the 60-70's. White count is up to 17.0, hemoglobin is stable, platelet count is state Blood gas has dropped to 7.15, pCO2 56. Bicarb is 20. Sodium is at 126, creatinine has jumped from 1.8-3.4. BUN is 64. Glucose norm Potassium norm Bicarb 19 Anion gap 13 Lactate is jumped up to 6.4 Phosphorus is mildly elevated Troponin is up to 0.12 CRP 24.6 BNP 17871 which is markedly changed from 18,000 Albumin is 3.4 -venous duplex and renal ultrasound ordered yesterday have been reviewed -urine cultures neg Echo done 12/29/2023 -normal LV size. EF 60-65% -mild by atrial enlargement -chronic age related valvular finding Objective: alert, a little foggy this morning but remarkably stable. Vitals: see above Lungs: Clear. Cardiac: irregular, irregular, rate 70s. no edema. Disposition/Potential discharge - Likely to return to previous living situation. Today I spent 50minutes seeing the patient, reviewing Expanse and EPIC notes/diagnostics, discussing the care plan with our care time that includes social work, PT/OT, pharmacy, RT, long term and documenting my impressions and plan in the medical record. Exam Const: Vital Signs, click to edit/add: Vital Signs - 24 hr 12/31/23 11:18 12/31/23 15:00 12/31/23 15:00 Temperature 97.6 F 97.7 F 97.7 F Pulse Rate Pulse Rate [Left P ulse Oximeter] 119 H 133 H 133 H Pulse Rate [Right Radial] Respiratory Rate 20 20 20 Blood Pressure [Ri ght Arm] 80/57 L 99/76 99/76 Pulse Oximetry 93 93 93 Oxygen Delivery Me thod Room Air Room Air Room Air 12/31/23 15:00 12/31/23 15:00 12/31/23 16:24 Temperature Pulse Rate 65 Pulse Rate [Left P ulse Oximeter] 133 H Pulse Rate [Right Radial] Respiratory Rate 20 20 Blood Pressure [Ri ght Arm] Pulse Oximetry 93 Oxygen Delivery Wv thod Room Air 12/31/23 17:15 12/31/23 19:00 12/31/23 23:00 Temperature 97.3 F L 97.3 F L Pulse Rate 71 Pulse Rate [Left P ulse Oximeter] 67 67 Pulse Rate [Right Radial] 111 H Respiratory Rate 20 20 Blood Pressure [Ri ght Arm] 115/55 L 115/55 L Pulse Oximetry 92 Oxygen Delivery Wv thod Room Air Room Air 12/31/23 23:00 12/31/23 23:00 01/01/24 02:19 Temperature Pulse Rate 109 H Pulse Rate [Left P ulse Oximeter] 72 Pulse Rate [Right Radial] Respiratory Rate 20 20 Blood Pressure [Ri ght Arm] Pulse Oximetry 90 Oxygen Delivery Wv thod Room Air 01/01/24 03:00 01/01/24 07:08 01/01/24 08:20 Temperature 97.6 F 97.6 F Pulse Rate 78 Pulse Rate [Left P ulse Oximeter] 69 60 Pulse Rate [Right Radial] Respiratory Rate 20 18 Blood Pressure [Ri ght Arm] 96/75 94/51 L Pulse Oximetry 90 90 Oxygen Delivery Wv thod Room Air Room Air 01/01/24 08:20 01/01/24 08:20 01/01/24 08:20 Temperature 97.6 F Pulse Rate Pulse Rate [Left P ulse Oximeter] 60 60 Pulse Rate [Right Radial] Respiratory Rate 18 18 18 Blood Pressure [Ri t Arm] 94/51 L Pulse Oximetry 90 90 Oxygen Delivery Wv thod Room Air Room Air 01/01/24 09:00 01/01/24 10:09 Temperature 97.0 F L Pulse Rate Pulse Rate [Left P ulse Oximeter] 84 72 Pulse Rate [Right Radial] Respiratory Rate 18 18 Blood Pressure [Ri t Arm] 101/60 87/44 L Pulse Oximetry 90 90 Oxygen Delivery Wv thod Room Air Room Air Labs Labs: Laboratory Results - last 24 hr 01/01/24 06:25 WBC 17.09 H RBC 3.72 L Hgb 11.5 L Hct 36.6 MCV 98 MCH 31 MCHC 31 L Plt Count 169 INR 1.47 H VBG pH 7.152 L* VBG pCO2 56 H VBG pO2 < 30.1 VBG HCO3 20 L Sodium 126 L Potassium 4.9 Chloride 94 L Carbon Dioxide 19 L Anion Gap 13 BUN 64 H Creatinine 3.4 H Estimated Creat Clear 10.01 Estimated GFR 13 Glucose 116 H Lactate 6.4 H* Calcium 8.3 L Phosphorus 4.7 H Magnesium 2.2 Troponin I 0.12 H* C-Reactive Protein 24.6 H NT-Pro-B Natriuret Pep 24393 Albumin 3.4
[2024-01-01 11:12] LABS: HCO3 VBG 19 mmol/L (21-28); PCO2 VBG 52 mmHG (40-50); PO2 VBG < 30.1 mmHG (25-47)
[2024-01-01 11:18] LABS: Lactate* 7.4 mmol/L (0.5-1.9)
[2024-01-01 11:19] LABS: pH VBG 7.177 (7.32-7.43)
--- NOTE | 2024-01-01 11:29 | CT_ITS ---
Patient: CELY GIFFORD Facility:?[facility] Patient ID:?[id number] Site Patient ID:?[id number]. Site :?[id number] Study:?CT-Chest/Abd/Pelvis WITHOUT-01/01/2024 12:36:16 PM Ordering Physician:?DR. SALINAS Final Report: Indication: ELEVATED LACTATE. POSSIBLE SEPTIC SHOCK Technique: CT chest/abdomen/pelvis without IV contrast Comparison: MRI abdomen on March 11, [address] abdomen/pelvis on December 12, 2017 Findings: Chest: No thyroid nodules. There are several prominent mediastinal lymph nodes without pathologic enlargement, likely reactive. The heart is at the upper limits of normal in size. No pericardial effusion. Coronary artery calcifications. Aortic and mitral annular calcifications. The thoracic aorta and pulmonary artery are normal in caliber. Ground-glass and consolidative opacities seen in the left upper lobe. Minimal centrilobular emphysematous changes. Atelectatic changes in the lingula and right middle lobe. Trace bilateral pleural effusions. No pneumothorax. No suspicious pulmonary nodules or masses. Calcified granulomas bilaterally. Abdomen/pelvis: The liver and gallbladder are unremarkable. Slightly atrophic spleen with no focal lesions. Cystic lesion in the uncinate process of the pancreas measures approximately 1.7 centimeters, incompletely characterized on this exam. (Series number 2, image 112). Atrophic kidneys bilaterally with no obvious renal masses or lesions on this unenhanced exam. No renal calculi or hydroureteronephrosis. The bladder is normal in appearance. Postsurgical changes of hysterectomy. No suspicious adnexal lesions. No evidence of bowel obstruction or inflammation. Enteric contrast has reached the distal sigmoid colon. The appendix is not visualized, likely surgically absent. There is colonic diverticulosis without CT evidence of acute diverticulitis. There is no enteric contrast extravasation. No free air. No significant free fluid. No abdominopelvic lymphadenopathy. No abdominal aortic aneurysm. Moderate to severe calcific atherosclerosis of the aortoiliac system and its branches. 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 Tiny fat containing umbilical hernia. Small bilateral fat containing inguinal hernias. No acute fracture or malalignment. There are some degenerative changes throughout the spine. No suspicious osseous lesions. Impression: 1. Ground-glass and consolidative opacities seen in the left upper lobe, concerning for an acute infectious/inflammatory process. 2. There are several prominent mediastinal lymph nodes without pathologic enlargement, likely reactive. 3. Trace bilateral pleural effusions. 4. No unenhanced CT evidence of an acute process involving the abdomen or pelvis. 5. Similar appearing cystic lesion at the uncinate process of the pancreas measuring 1.7 centimeters. Please note that all CT scans at this facility use dose modulation, iterative reconstruction, and/or weight-based dosing when appropriate to reduce radiation dose to as low as reasonably achievable. Dictated by Graham Burdick MD @ 01/01/2024 12:49:43 PM Signed by:?Graham Burdick MD @01/01/2024 12:49:43 PM (Electronic Signature)
[2024-01-01 11:31] LABS: Chloride* 94 mmol/L (96-114); Potassium* 5.1 mmol/L (3.6-5.1); Sodium* 126 mmol/L (135-149)
[2024-01-01 11:33] LABS: Creatinine* 3.5 mg/dL (0.5-1.5); Est. Creatinine Clearance* 9.72; Estimated Glomerular Filt Rate 12 ml/min
[2024-01-01 11:34] LABS: Anion Gap 12 mEq/L (7-15); Blood Urea Nitrogen* 62 mg/dL (7-30); Calcium* 7.4 mg/dL (8.4-10.6); Carbon Dioxide* 20 mmol/L (20-32); Glucose* 168 mg/dL (60-115); Phosphorus* 5.2 mg/dL (2.5-4.5)
[2024-01-01] MEDS: PIPERACILLIN/TAZOBACTAM 2.25 GM in 0.9 % SODIUM CHLORIDE Mini-bag 100 ML IVPB (12:03)
--- NOTE | 2024-01-01 12:15 | XR_ITS ---
Patient: CELY GIFFORD Facility:?[facility] Patient ID:?[id number] Site Patient ID:?[id number]. Site :?[id number] Study:?XRay-Chest 1 VIEW PORTABLE PICC PLACEMENT-01/01/2024 2:04:06 PM Ordering Physician:SHELLY Final Report: INDICATION: PICC placement. TECHNIQUE: Chest 1 views. COMPARISON: CT January 01, 2024. FINDINGS: Cardiovascular and mediastinum: Heart size and vasculature are normal in caliber and appearance. Left PICC with tip in the lower SVC. Lungs and pleural spaces: Left lung ground-glass consolidation. No sign of pleural effusion. No pneumothorax. Bones and soft tissues: No significant findings. IMPRESSION: Left PICC with tip in the lower SVC. Dictated by Parrish Verma MD @ 01/01/2024 2:16:42 PM Signed by:?Parrish Verma MD @01/01/2024 2:16:42 PM (Electronic Signature)
[2024-01-01 12:47] LABS: C Reactive Protein* < 0.5 mg/dL (0.5-1.0)
[2024-01-01 12:49] LABS: Procalcitonin* 8.31 ng/mL (<0.50)
[2024-01-01 12:59] LABS: Procalcitonin* 0.05 ng/mL (<0.50)
[2024-01-01 13:06] LABS: Partial Thromboplastin Time* 36 Seconds (23-33)
[2024-01-01] MEDS: LACTATED RINGERS 1000 ML 1,000 ML 500 ML IV (13:09)
[2024-01-01] MEDS: HEPARIN 5,000 UNIT/0.5 ML INJ 4200 UNIT IVP (13:11)
[2024-01-01] MEDS: HEPARIN 25,000 UNIT/500 ML BAG 19 UNIT IV (13:12)
[2024-01-01] MEDS: LACTATED RINGERS 1000 ML 1,000 ML 150 ML IV (15:33)
[2024-01-01] MEDS: AZITHROMYCIN 500 MG in 0.9 % SODIUM CHLORIDE 250 ml 250 ML 255 MG IVPB (15:40)
[2024-01-01 15:52] LABS: HCO3 VBG 16 mmol/L (21-28); Ionized Calcium* 0.99 mmol/L (1.11-1.30); PCO2 VBG 52 mmHG (40-50); PO2 VBG 40.4 mmHG (25-47)
[2024-01-01 15:55] LABS: Lactate* 9.4 mmol/L (0.5-1.9)
[2024-01-01 15:56] LABS: pH VBG 7.089 (7.32-7.43)
[2024-01-01 16:07] LABS: Chloride* 95 mmol/L (96-114)
[2024-01-01 16:08] LABS: Potassium* 4.8 mmol/L (3.6-5.1); Sodium* 125 mmol/L (135-149)
[2024-01-01 16:10] LABS: Creatinine* 3.3 mg/dL (0.5-1.5); Est. Creatinine Clearance* 10.31; Estimated Glomerular Filt Rate 13 ml/min
[2024-01-01 16:11] LABS: Anion Gap 15 mEq/L (7-15); Blood Urea Nitrogen* 56 mg/dL (7-30); Carbon Dioxide* 15 mmol/L (20-32); Glucose* 122 mg/dL (60-115)
[2024-01-01] MEDS: IPRAT-ALBUT 0.5-2.5 MG/3 ML NEB 1 NEB IH (16:21)
[2024-01-01] MEDS: MORPHINE 10 MG/0.5 ML ORAL SOLN PO (16:21)
[2024-01-01] MEDS: FUROSEMIDE 10 MG/ML inj 40 MG IVP (16:21)
--- NOTE | 2024-01-01 16:21 | PM.EN ---
Chart Event Note Time Seen by Provider: 16:00 Date Seen: 01/01/24 Chart Event Note: -in and out of erica room most of the day. -septic shock has evolved with identification of a left upper lobe ground-glass, consolidative process. -she has an acute renal failure, has a lactic acidosis that is acute and in [id number] respiratory distress. -we have stabilized her with central access via PICC line, IV antibiotics, IV steroids, vasopressor support, HFLOW oxygen, and a heparin infusion (initially I wondered if she had a large PE, despite being on Eliquis - maybe Eliquis was not being absorbed) -I narrowed my spectrum to septic shock after finding the pneumonia which is a new finding. I compared her CXR in urgent care, to admission. I did consider cardiogenic shock (AFIB), hypovolemic, obstructive shock. There has been no blood loss. I am treating if there is a PE that was not identified (no CTA b/c of renal status on admission but OAC started), she is volume depleted and this is contributing, however echo was reassuring. -and as a return to the room at 4:00 p.m. I find the miller is significantly worse than she was at my last visit 2 hours ago. She is struggling to breathe with mild anxiety, her color is annamarie, she is less responsive. -I spoke with her family member, daughter Suzanne, and explained her rapid declining state. We went to her bedside and asked specifically to miller if she would like me to pursue more heroic efforts which would include transfer to ICU and/or mechanical ventilation. Tiffanie is able to communicate that she wants to stay here and would like to be kept comfortable. -to that end: High-flow nasal cannula oxygen to alleviate air hunger along with sublingual morphine. IV Lasix to alleviate any pulmonary edema. Continuous nebs if they are helpful. Continue antibiotics and steroids. Continue vasopressor support. -I think she has a poor prognosis, and this was expressed to both Tiffanie and Suzanne the daughter. I've answered Suzanne's questions.
--- NOTE | 2024-01-01 16:26 | PC.NURSE ---
Dr. Nascimento notified of critical lab. Troponin 0.12.
[2024-01-01 16:29] LABS: Troponin I* 0.12 ng/mL (0.01-0.04)
--- NOTE | 2024-01-01 17:02 | PM.DN ---
Pronouncement Note Date and Time of Date of : 01/01/24 Time of : 17:00 PCOD Preliminary cause of : Pneumonia Contributing Factors (1) Shock circulatory: (2) Atrial fibrillation, new onset: (3) Acute DVT (deep venous thrombosis): (4) Acute kidney injury: (5) Elevated troponin: (6) Hyponatremia: (7) Hypokalemia: (8) Hypertension: (9) Asthma-chronic obstructive pulmonary disease overlap syndrome: (10) GERD (gastroesophageal reflux disease): Summary Additional details: Patient was admitted for 4 days and treated for rapid atrial fibrillation, hypotension and ultimately septic shock from a left upper lobe pneumonia. Despite standard of care treatment with antibiotics, fluids, vasopressor support, patient on 01/01/2024 at 5:00 p.m.. She was surrounded by her family and she peacefully. Additional Data Confirmation of : no pulse and no respirations Family: at bedside Attending/PCP notified?: No Attending physician: Was code activated?: No Autopsy requested?: No mobile paramedical examiner notified?: No Organ bank notified?: No Advance directives: Yes
--- NOTE | 2024-01-01 18:51 | PC.NURSE ---
/ sadly pt did pass away @ 1700 with son and daughter at bedside. pt was made unit this am. pt was alert x4 and very pleasant. 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 lactate was 6.4 this am. trop was also elevated. SL infiltrated this am. Iv started in the right A/c and left FA. later Picc was placed by picc stat. norepinephrine drip and heparin drip where started. IV boluses and Antibiotics. given . Md and RT where both in the room . Xrays done. lungs diminished, and wheezes at times. Aerobika was started. High flow was started by RT. back pain at most 5-7/10, tramadol 50 mg given. lidocaine patch was off. . Active ice used for back pain. Pt is up SBA walker. Pt did not void and when Gonzalez was placed. No BM. Tele shows A.fib HR 56-88. went in at 1520 to do vitals and pt was looking more pale and very uncomfortable,. md was updated and labs drawn. Lactate was increase, MD ordered lasic, po morphine. gladys and russell-Medrol was also given RT came in and started high flow. 1630 was in room and pt was agonal breathing. MD was updated and came to room . Pt passed peacefully @ 1700 with son and daughter at bed side. MD was in room. .
--- NOTE | 2024-01-01 19:07 | PC.NURSE ---
Called [employer] for ETA update. [employer]rd [employer] vendor will arrive shortly. 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
--- NOTE | 2024-01-01 19:20 | PC.NURSE ---
all personal item sent with family. necklace and bracelet and phone. we found slippers and phone charge. family will pick it up in ED.
[2024-01-02 21:21] LABS: Cortisol, Serum 57.6 ug/dL
== END 2024-01-01 20:29 | disposition expired | DRG 871 ==
LOC: ED 09:43 → MEDSURG 10:25
PROVIDERS: Family Medicine; Admitting Provider Family Medicine; Emergency Provider Family Medicine; PCP Family Medicine; Visit Provider Family Medicine
DX: A41.9 Sepsis, unspecified organism (principal); J18.1 Lobar pneumonia, unspecified organism; R65.21 Severe sepsis with septic shock; E87.1 Hypo-osmolality and hyponatremia; N17.9 Acute kidney failure, unspecified; K86.2 Cyst of pancreas; E87.21 Acute metabolic acidosis; I24.89 Other forms of acute ischemic heart disease; I82.411 Acute embolism and thrombosis of right femoral vein; I82.431 Acute embolism and thrombosis of right popliteal vein; I82.451 Acute embolism and thrombosis of right peroneal vein; I82.441 Acute embolism and thrombosis of right tibial vein; R00.1 Bradycardia, unspecified; R06.03 Acute respiratory distress; I95.9 Hypotension, unspecified; E87.6 Hypokalemia; I10 Essential (primary) hypertension; J44.89 Other specified chronic obstructive pulmonary disease; G62.9 Polyneuropathy, unspecified; E03.8 Other specified hypothyroidism; K21.9 Gastro-esophageal reflux disease without esophagitis
CPT/HCPCS: 36415; 36573; 51701; 71046; 71250; 74176; 76775; 80048; 80053; 80069; 81001; 82330; 82533; 82803; 82962; 83605; 83735; 83880; 83930; 83935; 84145; 84300; 84439; 84443; 84484; 85025; 85027; 85379; 85610; 85730; 86140; 87040; 87070; 87081; 87086; 87186; 87449; 87899; 93005; 93306; 93970; 94640; 94664; 97110; 97116; 97161; 97165; 97530; 97535; 99285; A4221; A9270; C1751; C9113; J0456; J1644; J1720; J1940; J2405; J2543; J3475; J3480; J7030; J7050; J7070; J7120; J7512